=== PATIENT | female | born 1965 | race Caucasian/White ===

== ENCOUNTER 2017-07-26 10:10 | Emergency (ER) | payer MEDICAID, MEDICARE ==
[2017-07-26 11:07] VITALS: BP 140/71
[2017-07-26] MEDS ORDERED: Albuterol 2.5 MG/3 ML NEB.SOL* (0.083%) INH ONE (11:52)
[2017-07-26] MEDS ORDERED: Ipratropium 0.5MG/2.5ML NEB* 0.5 MG/2.5 ML NEB.SOLN INH ONE (11:52)
--- NOTE | 2017-07-26 11:52 | UC ---
Respiratory Complaint HPI - HPI Summary HPI Summary: Cough x 2-3 weeks. 3 days ago much worse with coughing fits, shaking chills, fevers, post tussive emesis. - History of Current Complaint Chief Complaint: UCRespiratory Stated Complaint: ACHY CHILLS VOMITTING DIARRHEA Time Seen by Provider: 07/26/17 11:36 Hx Obtained From: Patient Onset/Duration: Gradual Onset, Lasting Weeks - 2, Worse Since - last 3 days. Timing: Constant Severity Initially: Mild Severity Currently: Severe Character: Cough: Productive - green sputum Associated Signs And Symptoms: Positive: Dyspnea, Fever, Chills, Wheezing, URI, Nasal Congestion. Negative: Sinus Discomfort - Allergies/Home Medications Allergies/Adverse Reactions: Allergies Allergy/AdvReac Type Severity Reaction Status Date / Time Aspirin Allergy Intermediate Bleeding Verified 07/26/17 11:08 Morphine AdvReac Itching Verified 07/26/17 11:07 PMH/Surg Hx/FS Hx/Imm Hx Respiratory History: COPD, Asthma - Surgical History Surgical History: Yes Surgery Procedure, Year, and Place: tumor on left side of neck removed, tubal, tubal reversal, c6-c7 plate, Benign tumor removed from R breast - Family History Known Family History: Negative: Cardiac Disease, Hypertension, Diabetes - Social History Occupation: Employed Full-time Lives: With Family Alcohol Use: Rare Substance Use Type: None Smoking Status (MU): Former Smoker Type: Cigarettes Amount Used/How Often: 1/2 - 1 ppd Length of Time of Smoking/Using Tobacco: since age 13 Have You Smoked in the Last Year: Yes When Did the Patient Quit Smoking/Using Tobacco: states 07/09/17 - Immunization History Most Recent Influenza Vaccination: Fall 2015 Review of Systems Constitutional: Fever, Chills ENT: Ear Ache, Nasal Discharge Respiratory: Shortness Of Breath, Cough Gastrointestinal: Vomiting - post-tussive Is Patient Immunocompromised?: No All Other Systems Reviewed And Are Negative: Yes Physical Exam Triage Information Reviewed: Yes Appearance: No Pain Distress, Ill-Appearing, Thin Vital Signs: Initial Vital Signs Temp 102.1 F 07/26/17 10:59 Pulse 120 07/26/17 10:59 Resp 20 07/26/17 10:59 BP 140/71 07/26/17 10:59 Pulse Ox 99 07/26/17 10:59 Vital Signs Reviewed: Yes Eyes: Positive: Conjunctiva Clear ENT: Positive: Pharynx normal, Nasal congestion, TMs normal Neck exam: Normal Respiratory: Positive: Decreased breath sounds, Wheezing Cardiovascular Exam: Normal Musculoskeletal Exam: Normal Neurological Exam: Normal Psychological Exam: Normal Skin Exam: Normal UC Diagnostic Evaluation - Laboratory O2 Sat by Pulse Oximetry: 99 - Radiology Xray Interpretation: Positive (See Comments) - RML pneumonia Radiology Interpretation Completed By: ED Physician Respiratory Course/Dx - Differential Dx/Diagnosis Differential Diagnosis/HQI/PQRI: Exacerbation Of COPD, Lower Resp Infection, Sinusitis Provider Diagnoses: Acute Pneumonia. COPD with acute exacerbation Discharge - Discharge Plan Condition: Stable Disposition: HOME Prescriptions: Levofloxacin TAB* [Levaquin TAB*] 500 mg PO DAILY #10 tab predniSONE TAB* [Deltasone TAB*] 20 mg PO DAILY #18 tab Patient Education Materials: Community Acquired Pneumonia (ED), Levofloxacin ( By mouth), Bronchospasm (ED), Prednisone (By mouth) Referrals: Francoise Marie MD [Primary Care Provider] -
--- NOTE | 2017-07-26 12:31 | RAD ---
INDICATION: Cough and shortness of breath COMPARISON: Most recent chest x-ray dated October 27, 2013 TECHNIQUE: PA and lateral views of the chest were obtained. FINDINGS: The heart and mediastinum are normal in size and contour. There is density obscuring the right lung base and right hemidiaphragm. More superiorly the right lung as well as the left lung are adequately aerated. On the lateral view there is consolidation of the right middle lobe as well as infiltration of the posterior right lower lobe. Visualized bones are normal for the patient's age. There is no radiographic evidence of free air beneath the diaphragm IMPRESSION: CHEST X-RAY FINDINGS ARE MOST CONSISTENT WITH LOBAR CONSOLIDATION OF THE RIGHT MIDDLE LOBE WITH PATCHY INFILTRATION OF THE DEPENDENT POSTERIOR RIGHT LOWER LOBE WELL. A FOLLOW-UP CHEST X-RAY AFTER AN APPROPRIATE COURSE OF THERAPY IS ADVISED TO ASCERTAIN RESOLUTION.
== END 2017-07-26 13:14 | disposition home or self-care (01) ==
LOC: UCCORT 10:10
DX: J18.9 Pneumonia, unspecified organism (principal); J44.1 Chronic obstructive pulmonary disease with (acute) exacerbation; Z88.6 Allergy status to analgesic agent; Z88.5 Allergy status to narcotic agent; Z87.891 Personal history of nicotine dependence
CPT/HCPCS: 71020; 99212; G0463; J7644

== ENCOUNTER 2017-08-03 10:38 | Emergency (ER) | payer MEDICARE ==
--- NOTE | 2017-08-03 13:56 | UC ---
Respiratory Complaint HPI - HPI Summary HPI Summary: Dx'd RML pneumonia with COPD exacerbation 8 days ago. Placed on levaquin and prednisone. Still coughing with pleuritis chest pain. Some chills but no fevers or rigors. - History of Current Complaint Chief Complaint: UCRespiratory Stated Complaint: RECHECK PNEUMONIA Time Seen by Provider: 08/03/17 13:41 Hx Obtained From: Patient Hx Last Menstrual Period: n/a ?: No Onset/Duration: Sudden Onset, Lasting Weeks - 2, Still Present Timing: Constant Severity Initially: Severe Severity Currently: Moderate Character: Cough: Nonproductive - only rarely bringing anything up. Alleviating Factors: Nothing Associated Signs And Symptoms: Positive: Dyspnea, Chills, Pleuritic Chest Pain, Wheezing, Nasal Congestion. Negative: Fever, Hemoptysis, Sinus Discomfort - Allergies/Home Medications Allergies/Adverse Reactions: Allergies Allergy/AdvReac Type Severity Reaction Status Date / Time Aspirin Allergy Intermediate Bleeding Verified 08/03/17 13:40 Morphine AdvReac Itching Verified 08/03/17 13:40 PMH/Surg Hx/FS Hx/Imm Hx Respiratory History: COPD, Asthma Psychological History: Anxiety - Surgical History Surgical History: Yes Surgery Procedure, Year, and Place: tumor on left side of neck removed, tubal, tubal reversal, c6-c7 plate, Benign tumor removed from R breast - Family History Known Family History: Negative: Cardiac Disease, Hypertension, Diabetes - Social History Occupation: Disabled Lives: With Family Alcohol Use: Rare Substance Use Type: None Smoking Status (MU): Former Smoker Type: Cigarettes Amount Used/How Often: 1/2 - 1 ppd Length of Time of Smoking/Using Tobacco: since age 13 Have You Smoked in the Last Year: Yes When Did the Patient Quit Smoking/Using Tobacco: states 07/09/17 - Immunization History Most Recent Influenza Vaccination: Fall 2015 Review of Systems Constitutional: Chills, Fatigue ENT: Sore Throat - tongue was sore with a white coating. Respiratory: Shortness Of Breath, Cough Is Patient Immunocompromised?: No All Other Systems Reviewed And Are Negative: Yes Physical Exam Triage Information Reviewed: Yes Appearance: Ill-Appearing, Pain Distress - with breathing and coughing, Thin Vital Signs: Initial Vital Signs Temp 98.7 F 08/03/17 13:35 Pulse 97 08/03/17 13:35 Resp 22 08/03/17 13:35 BP 104/63 08/03/17 13:35 Pulse Ox 94 08/03/17 13:35 Vital Signs Reviewed: Yes Eyes: Positive: Conjunctiva Inflamed ENT: Positive: Pharyngeal erythema - on the palate with white patches., TMs normal Neck exam: Normal Respiratory: Positive: Decreased breath sounds - diffusely with dullness in the right base. Cardiovascular Exam: Normal Musculoskeletal: Positive: Other: - Tenderness over the right lateral rib cage. Neurological Exam: Normal Psychological Exam: Normal Skin Exam: Normal UC Diagnostic Evaluation - Laboratory O2 Sat by Pulse Oximetry: 94 Respiratory Course/Dx - Differential Dx/Diagnosis Differential Diagnosis/HQI/PQRI: Asthma, Exacerbation Of COPD, Lower Resp Infection Provider Diagnoses: Right lower lobe lobar pneumonia. Lung nodules right upper lobe Discharge - Discharge Plan Condition: Stable Disposition: HOME Prescriptions: RX: Levofloxacin TAB* [Levaquin 750 MG TAB*] 750 mg PO DAILY #7 tab RX: predniSONE TAB* [Deltasone TAB*] 20 mg PO DAILY #18 tab Patient Education Materials: Pulmonary Nodules (ED), Community Acquired Pneumonia (ED) Referrals: Francoise Marie MD [Primary Care Provider] - 2 Weeks (Recheck lungs. Will need recheck CT lungs in 4 months to follow up pulmonary nodules.) Additional Instructions: Make sure to see you doctor to follow up on the pneumonia and the pulmonary nodules.
--- NOTE | 2017-08-03 14:34 | RAD ---
INDICATION: Right middle lobe pneumonia, with shortness of breath, coughing. COMPARISON: Comparison is made with a prior chest x-ray study from July 26, 2017. TECHNIQUE: Dual-energy PA and lateral views of the chest were obtained. FINDINGS: The heart is within normal limits in size. Mediastinal and hilar contours appear normal. There is a dense lobar infiltrate mainly in the right lower lobe possibly with involvement of the middle lobe. There is a small pleural effusion. This is progressed from the prior study. The left lung remains clear. Postsurgical changes are noted in the lower cervical spine. IMPRESSION: RIGHT LOWER LOBE INFILTRATE AND SMALL PLEURAL EFFUSION SUSPICIOUS FOR LOBAR PNEUMONIA DEMONSTRATING INTERVAL PROGRESSION. RECOMMEND FOLLOW-UP CHEST X-RAYS TO RESOLUTION.
[2017-08-03 14:50] VITALS: BP 97/57
--- NOTE | 2017-08-03 14:58 | RAD ---
INDICATION: Worsening right middle lobe infiltrate. COMPARISON: Comparison is made with prior chest x-ray studies from July 26, 2017 and August 03, 2017. TECHNIQUE: A CT scan of the chest was performed without intravenous contrast. Contiguous axial sections were obtained from the lung apices through the lung bases. Images were reconstructed in the coronal and sagittal planes. FINDINGS: There is a 4.2 cm cystic area present in the right upper lobe likely representing emphysematous bulla. There is an irregular nodular density in the right upper lobe measuring 0.5 cm in size best seen on image #18. This may represent an area of scarring or possibly a spiculated nodule. There is a second 0.5 cm nodular density best seen on image #25 also within the right upper lobe. There is a dense right lower lower and middle lobe infiltrate which has progressed from the study from July 26, 2017. The basilar segmental bronchi are opacified. There are couple small cystic areas in the posterior aspect of the infiltrate possibly representing cavitation. There is a small right pleural effusion. The left lung appears clear. There are slightly enlarged 0.9 cm lymph nodes in the left aorticopulmonary window and subcarinal regions. The right hilum is obscured by the infiltrate. The left hilum appears within normal limits. The heart is normal in size. There are coronary artery calcifications present. No pericardial effusion is present. The thoracic aorta is normal in caliber. No significant focal osseous abnormality is seen. IMPRESSION: 1. RIGHT MIDDLE AND LOWER LOBAR INFILTRATE DEMONSTRATING INTERVAL PROGRESSION WITH POSSIBLE NECROTIZING COMPONENT. THERE IS OPACIFICATION OF THE BASILAR SEGMENTAL BRONCHI AND A SMALL ASSOCIATED PLEURAL EFFUSION. RECOMMEND FOLLOW-UP CHEST X-RAYS TO RESOLUTION. 2. MILDLY ENLARGED MEDIASTINAL LYMPH NODES LIKELY REACTIVE. 3. SMALL RIGHT UPPER LOBE PULMONARY NODULES RECOMMEND CLOSE FOLLOW-UP WITH A REPEAT NONCONTRAST CT OF THE CHEST IN 6 MONTHS TIME.
== END 2017-08-03 15:36 | disposition home or self-care (01) ==
LOC: UCCORT 10:38
DX: J18.9 Pneumonia, unspecified organism (principal); R91.1 Solitary pulmonary nodule; J44.9 Chronic obstructive pulmonary disease, unspecified; F41.9 Anxiety disorder, unspecified; Z88.6 Allergy status to analgesic agent; Z88.5 Allergy status to narcotic agent; Z87.891 Personal history of nicotine dependence
CPT/HCPCS: 71020; 71250; 99212; G0463